=== PATIENT | female | born 1980 | race Two or more races ===

== ENCOUNTER 2017-08-12 09:08 | Emergency (ER) | payer BC, OTHER ==
[~2017-08-12] VITALS: Ht 165.1 cm; Wt 72.6 kg
--- NOTE | 2017-08-12 09:29 | NUR ---
PT IS IN ROOM #2B. DR CHAMORRO EVALUATED THE PT.
--- NOTE | 2017-08-12 09:40 | NUR ---
PT WAS D/C TO HOME. D/C INSTRUCTIONS GIVEN TO THE PT.
[2017-08-12 09:42] VITALS: BP 128/76
== END 2017-08-12 09:42 | disposition home or self-care (01) ==
LOC: ER 09:08
DX: H10.9 Unspecified conjunctivitis (principal)
CPT/HCPCS: A4663

== ENCOUNTER → 2017-12-02 | Outpatient (CLI) | payer BC, OTHER ==
[2017-12-02 10:16] LABS: *BILIRUBIN,URIN NEGATIVE (NEGATIVE); *BLOOD, URINE 3+ (NEGATIVE); *CLARITY,URINE SLIGHTLY CLOUDY (CLEAR); *COLOR,URINE YELLOW (YELLOW); *KETONES,URINE NEGATIVE (NEGATIVE); *PROTEIN,URINE NEGATIVE (NEGATIVE); *UROBILINOGEN,URINE 0.2 E.U./dl (NORMAL); LEUKOCYTE ESTERASE ,URINE TRACE (NEGATIVE); NITRITE, URINE NEGATIVE (NEGATIVE); UGLUCOSE NEGATIVE (NEGATIVE)
[2017-12-02 10:18] LABS: BASOPHILS # (AUTO) 0.1 K/uL (0.0-8.0); BASOPHILS % (AUTO) 0.8 % (0.0-2.0); EOSINOPHILS # (AUTO) 0.2 K/uL (0.0-0.7); EOSINOPHILS % (AUTO) 2.7 % (0.0-7.0); HEMOGLOBIN 13.7 g/dL (10.9-14.3); LYMPHOCYTES # (AUTO) 2.3 K/uL (20.0-40.0); MEAN CORPUSCULAR HEMOGLOBIN 28.9 uug (24.7-32.8); MEAN CORPUSCULAR HGB CONC 34 g/dL (32.3-35.6); MEAN CORPUSCULAR VOLUME 84.2 fL (75.5-95.3); MONOCYTES # (AUTO) 0.6 K/uL (2.0-10.0); MONOCYTES % (AUTO) 9.3 % (0.0-11.0); NEUTROPHILS # (AUTO) 3.4 K/uL (1.8-8.9); NEUTROPHILS % (AUTO) 52.2 % (38.5-71.5); PLATELET COUNT (AUTO) 266 K/uL (179-408); RED BLOOD CELL COUNT(AUTO) 4.76 MIL/uL (3.63-4.92); WHITE BLOOD COUNT (AUTO) 6.5 K/uL (3.8-11.8)
[2017-12-02 10:38] LABS: BACTERIA,URINE MODERATE /HPF (NONE SEEN); SQUAMOUS EPITHELIAL CELL,UR MANY /HPF (NONE SEEN)
[2017-12-02 11:06] LABS: THYROID STIMULATING HORMONE 2.201 mIU/mL (0.358-3.740)
[2017-12-02 11:15] LABS: BILIRUBIN,TOTAL 0.3 mg/dL (0.2-1.0); CREATININE 0.7 mg/dL (0.6-1.3); POTASSIUM 3.8 mmol/L (3.5-5.1); TOTAL PROTEIN, SERUM 8.8 g/dL (6.4-8.2)
[2017-12-05 08:06] LABS: *TESTOSTERONE, SERUM 30 ng/dL (8-48); ESTRADIOL 27.1 pg/mL (.); PROGESTERONE <0.1 ng/mL (.); VIT D, 25-HYDROXY 25.1 ng/mL (30.0-100.0)
== END | disposition home or self-care (01) ==
LOC: LAB 08:59
PROVIDERS: ATTEND Internal Medicine
DX: R10.9 Unspecified abdominal pain (principal)
CPT/HCPCS: 36415; 82306; 82670; 82746; 82785; 84403; 84443; 84480; 85025; 87086

== ENCOUNTER 2018-04-10 19:07 | Emergency (ER) | payer BC, OTHER ==
[~2018-04-10] VITALS: Ht 162.6 cm; Wt 79.4 kg
[2018-04-10] MEDS ORDERED: FLUCONAZOLE 100 MG TABLET PO ONE (19:30)
[2018-04-10 19:35] LABS: *BILIRUBIN,URIN NEGATIVE (NEGATIVE); *BLOOD, URINE 1+ (NEGATIVE); *COLOR,URINE YELLOW (YELLOW); *KETONES,URINE NEGATIVE (NEGATIVE); *PROTEIN,URINE NEGATIVE (NEGATIVE); *UROBILINOGEN,URINE 0.2 E.U./dl (NORMAL); LEUKOCYTE ESTERASE ,URINE 3+ (NEGATIVE); NITRITE, URINE NEGATIVE (NEGATIVE); UGLUCOSE NEGATIVE (NEGATIVE)
[2018-04-10] MEDS ORDERED: FLUCONAZOLE 100 MG TABLET ONE (19:35)
[2018-04-10 19:53] LABS: *CLARITY,URINE SLIGHTLY HAZY (CLEAR)
[2018-04-10 19:55] LABS: BACTERIA,URINE FEW /HPF (NONE SEEN); SQUAMOUS EPITHELIAL CELL,UR FEW /HPF (NONE SEEN); WBC,URINE 20-50 /HPF (0-3)
[2018-04-10 19:56] LABS: *URINE HCG, QUAL NEGATIVE (NEGATIVE)
[2018-04-10] MEDS ORDERED: SULFAMETH/TRIMETH 800/160 MG TABLET PO ONE (20:00)
[2018-04-10] MEDS ORDERED: SULFAMETH/TRIMETH 800/160 MG TABLET ONE (20:01)
--- NOTE | 2018-04-10 20:01 | NUR ---
Patient discharged to home in stable conditon. Written and verbal after care instructions given. Patient verbalizes understanding of instructions.
[2018-04-10 20:02] VITALS: BP 108/71
== END 2018-04-10 20:02 | disposition home or self-care (01) ==
LOC: ER 19:08
DX: N39.0 Urinary tract infection, site not specified (principal)
CPT/HCPCS: 84703; A4663

== ENCOUNTER 2019-02-18 09:58 | Outpatient (CLI) | payer BC, OTHER ==
[2019-02-18 10:39] LABS: *BILIRUBIN,URIN NEGATIVE (NEGATIVE); *BLOOD, URINE 2+ (NEGATIVE); *CLARITY,URINE CLEAR (CLEAR); *COLOR,URINE YELLOW (YELLOW); *KETONES,URINE NEGATIVE (NEGATIVE); *UROBILINOGEN,URINE 0.2 E.U./dl (NORMAL); BASOPHILS # (AUTO) 0.1 K/uL (0.0-8.0); BASOPHILS % (AUTO) 0.9 % (0.0-2.0); EOSINOPHILS # (AUTO) 0.2 K/uL (0.0-0.7); EOSINOPHILS % (AUTO) 2.9 % (0.0-7.0); HEMATOCRIT 39.6 % (31.2-41.9); HEMOGLOBIN 13.2 g/dL (10.9-14.3); LEUKOCYTE ESTERASE ,URINE TRACE (NEGATIVE); LYMPHOCYTES # (AUTO) 1.9 K/uL (20.0-40.0); MEAN CORPUSCULAR HEMOGLOBIN 27.8 uug (24.7-32.8); MEAN CORPUSCULAR HGB CONC 33 g/dL (32.3-35.6); MEAN CORPUSCULAR VOLUME 83.6 fL (75.5-95.3); MONOCYTES # (AUTO) 0.6 K/uL (2.0-10.0); MONOCYTES % (AUTO) 8.4 % (0.0-11.0); NEUTROPHILS # (AUTO) 3.9 K/uL (1.8-8.9); NEUTROPHILS % (AUTO) 58.8 % (38.5-71.5); NITRITE, URINE NEGATIVE (NEGATIVE); PLATELET COUNT (AUTO) 266 K/uL (179-408); RED BLOOD CELL COUNT(AUTO) 4.74 MIL/uL (3.63-4.92); UGLUCOSE NEGATIVE (NEGATIVE); WHITE BLOOD COUNT (AUTO) 6.6 K/uL (3.8-11.8)
[2019-02-18 10:50] LABS: *RHEUMATOID FACTOR SCREEN NEGATIVE (NEGATIVE)
[2019-02-18 10:56] LABS: THYROID STIMULATING HORMONE 2.287 mIU/mL (0.358-3.740)
[2019-02-18 11:00] LABS: SQUAMOUS EPITHELIAL CELL,UR FEW /HPF (NONE SEEN)
[2019-02-18 11:01] LABS: BACTERIA,URINE FEW /HPF (NONE SEEN); WBC,URINE 0-3 /HPF (0-3)
[2019-02-18 11:12] LABS: BILIRUBIN,TOTAL 0.2 mg/dL (0.2-1.0); CREATININE 0.7 mg/dL (0.6-1.3); POTASSIUM 3.9 mmol/L (3.5-5.1); TOTAL PROTEIN, SERUM 8.7 g/dL (6.4-8.2)
== END 2019-02-18 23:59 | disposition home or self-care (01) ==
LOC: LAB 09:58
PROVIDERS: ATTEND Internal Medicine
DX: R53.83 Other fatigue (principal)
CPT/HCPCS: 36415; 84443; 85025; 86430; 87086

== ENCOUNTER 2019-11-06 15:50 | Emergency (ER) | payer BC, OTHER ==
[~2019-11-06] VITALS: Ht 167.6 cm; Wt 79.4 kg
[2019-11-06] MEDS ORDERED: IBUPROFEN 800 MG TABLET ONE (16:43)
[2019-11-06] MEDS ORDERED: ACETAMINOPHEN ES 500 MG TABLET ONE (16:43)
[2019-11-06] MEDS ORDERED: IBUPROFEN 800 MG TABLET PO ONE (16:45)
[2019-11-06] MEDS ORDERED: ACETAMINOPHEN ES 500 MG TABLET PO ONE (16:45)
--- NOTE | 2019-11-06 16:45 | NUR ---
Patient discharged to home in stable conditon. Written and verbal after care instructions given. Patient verbalizes understanding of instructions.pt walks in steady gait, no sign of distress at this time. pt accompanied by who provided translation
[2019-11-06 16:47] VITALS: BP 109/71
== END 2019-11-06 16:51 | disposition home or self-care (01) ==
LOC: ER 15:55
DX: B34.9 Viral infection, unspecified (principal); R10.11 Right upper quadrant pain; Z90.49 Acquired absence of other specified parts of digestive tract
CPT/HCPCS: A4663; A9150

== ENCOUNTER 2023-11-01 13:38 | Emergency (ER) | payer BC, OTHER ==
[~2023-11-01] VITALS: Ht 157.5 cm; Wt 79.4 kg
[2023-11-01 13:48] VITALS: O2SAT 99
[2023-11-01 13:59] LABS: *BILIRUBIN,URIN NEGATIVE (NEGATIVE); *CLARITY,URINE CLEAR (CLEAR); *COLOR,URINE YELLOW (YELLOW); *KETONES,URINE NEGATIVE (NEGATIVE); *PROTEIN,URINE NEGATIVE (NEGATIVE); *UROBILINOGEN,URINE 0.2 E.U./dl (NORMAL); LEUKOCYTE ESTERASE ,URINE NEGATIVE (NEGATIVE); NITRITE, URINE NEGATIVE (NEGATIVE); UGLUCOSE NEGATIVE (NEGATIVE)
[2023-11-01 14:14] LABS: *BLOOD, URINE NEGATIVE (NEGATIVE)
[2023-11-01 14:15] LABS: *URINE HCG, QUAL NEGATIVE (NEGATIVE)
[2023-11-01 15:38] LABS: BASOPHILS # (AUTO) 0.2 K/UL (0.0-0.2); EOSINOPHILS # (AUTO) 0.2 K/uL (0.0-0.7); EOSINOPHILS % (AUTO) 2.7 % (0.0-7.0); HEMATOCRIT 29.2 % (31.2-41.9); HEMOGLOBIN 9.3 g/dL (10.9-14.3); LYMPHOCYTES # (AUTO) 1.9 K/uL (0.8-4.8); LYMPHOCYTES % (AUTO) 30.8 % (20.5-51.5); MEAN CORPUSCULAR HEMOGLOBIN 20.8 uug (24.7-32.8); MEAN CORPUSCULAR HGB CONC 32 g/dL (32.3-35.6); MEAN CORPUSCULAR VOLUME 65.6 fL (75.5-95.3); MONOCYTES # (AUTO) 0.7 K/uL (0.1-1.30); MONOCYTES % (AUTO) 11.2 % (0.0-11.0); NEUTROPHILS # (AUTO) 3.2 K/uL (1.8-8.9); NEUTROPHILS % (AUTO) 52.3 % (38.5-71.5); PLATELET COUNT (AUTO) 311 K/uL (179-408); RED BLOOD CELL COUNT(AUTO) 4.45 MIL/uL (3.63-4.92); RED CELL DISTRIBUTION WIDTH 18.7 % (12.3-17.7)
[2023-11-01 15:39] LABS: CALCIUM 9.4 mg/dL (8.5-10.1); CREATININE 0.6 mg/dL (0.6-1.3); POTASSIUM 3.8 mmol/L (3.5-5.1)
[2023-11-01 15:40] LABS: DIFFERENTIAL COMMENT 1
[2023-11-01 15:44] LABS: BILIRUBIN,DIRECT 0.1 mg/dL (0.0-0.2); BILIRUBIN,TOTAL 0.1 mg/dL (0.2-1.0); TOTAL PROTEIN, SERUM 8.8 g/dL (6.4-8.2)
[2023-11-01] MEDS ORDERED: IBUP-1957 PO (16:48)
[2023-11-01] MEDS ORDERED: AMOX-430 PO (16:48)
[2023-11-01] MEDS ORDERED: PHEN-705 PO (16:48)
== END 2023-11-01 17:29 | disposition home or self-care (01) ==
LOC: ER 13:38
DX: R10.31 Right lower quadrant pain (principal); R10.2 Pelvic and perineal pain; R10.32 Left lower quadrant pain; Z90.49 Acquired absence of other specified parts of digestive tract; Z79.1 Long term (current) use of non-steroidal anti-inflammatories (NSAID); Z79.899 Other long term (current) drug therapy
CPT/HCPCS: 36415; 76856; 83690; 84703; 85025; A4606; A4663